=== PATIENT | male | born 1965 | race Caucasian/White ===

== ENCOUNTER 2019-12-17 11:57 | Emergency (ER) | payer SELFPAY ==
[2019-12-17 12:08] VITALS: BP 142/93
--- NOTE | 2019-12-17 12:36 | Emergency Department Report ---
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 he denies any pain. he denies any TRIMBLE or eye pain. he denies getting anything into the eye. he denies any LOC, no vomiting, no numbness, weakness, bowel or bladder incontinence. his last tetanus immunization was 2 years ago. PMHx DM which he reports is controlled on oral meds. no allergies to meds. - Related Data Previous Rx's Medication Instructions Recorded Last Taken Type Cephalexin [Keflex] 500 mg PO BID #14 capsule 03/07/13 Unknown Rx Hydrocodone Bit/Acetaminophen 1 each PO Q8HR PRN #15 tablet 03/07/13 Unknown Rx [Lortab 5-500 Tablet] Allergies Allergy/AdvReac Type Severity Reaction Status Date / Time No Known Allergies Allergy Verified 03/07/13 22:42 ED Review of Systems ROS: Stated complaint: LACERATION ABOVE LT EYE Other details as noted in HPI Comment: All other systems reviewed and negative ED Past Medical Hx - Past Medical History Hx Diabetes: Yes - Surgical History Additional Surgical History: left arm surgery - Social History Smoking Status: Never Smoker - Medications Home Medications: Home Medications Medication Instructions Recorded Confirmed Last Taken Type Cephalexin [Keflex] 500 mg PO BID #14 capsule 03/07/13 Unknown Rx Hydrocodone Bit/Acetaminophen 1 each PO Q8HR PRN #15 tablet 03/07/13 Unknown Rx [Lortab 5-500 Tablet] ED Physical Exam - General Limitations: Language Barrier General appearance: alert, in no apparent distress - Head Head exam: Present: other (1.5 cm laceration present to just below the left eyebrow ) - Eye Eye exam: Present: PERRL, EOMI, other (no signs of entrapement, mild ecchymosis to the left upper eyelid). Absent: conjunctival injection, periorbital swelling, periorbital tenderness - Neurological Exam Neurological exam: Present: alert, oriented X3, CN II-XII intact, normal gait. Absent: motor sensory deficit - Psychiatric Psychiatric exam: Present: normal affect, normal mood - Skin Skin exam: Present: warm, dry ED Course Vital Signs 12/17/19 12:01 Temperature 98.3 F Pulse Rate 76 Respiratory 18 Rate Blood Pressure 142/93 O2 Sat by Pulse 98 Oximetry - Laceration /Wound Repair Left Face Wound Location: face (just inferior to the left eyebrow) Wound Length (cm): 1 (1.5 cm total) Wound's Depth, Shape: superficial Wound Explored: clean Irrigated w/ Saline (ccs): 100 Betadine Prep?: Yes Volume Anesthetic (ccs): 0 Wound Debrided: extensive Wound Repaired With: Steri-strips, Dermabond Sterile Dressing Applied?: Yes Progress: There is a 1.5 cm laceration present just below the left eyebrow, no foreign body, no muscle involvement, wound irrigated with saline and thoroughly scrubbed with Betadine, multiple layers of Dermabond placed with good skin approximation, Steri-Strips applied, patient tolerated well, no complications, bleeding controlled, sterile dressing applied ED Medical Decision Making - Medical Decision Making pt is a 54 yo male who presents to the ED with c/o a laceration above the left eye that 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 he denies any pain. he denies any TRIMBLE or eye pain. he denies getting anything into the eye. he denies any LOC, no vomiting, no numbness, weakness, bowel or bladder incontinence. his last tetanus immunization was 2 years ago. PMHx DM which he reports is controlled on oral meds. no allergies to meds. vss. on exam: 1.5 cm laceration present to just below the left eyebrow, no foreign body, no muscle involvement,no signs of entrapement, mild ecchymosis to the left upper eyelid, no periorbital tenderness palpation. Wound repaired per procedure note with Dermabond and Steri-Strips. advised pt Please keep area clean, dry, covered. Please do not get the area wet for 2 days. After 2 days may wash around the area with soap and water and pat dry. No hot tub, no pool, no soaking in water. Showering is fine. Follow-up with a primary care doctor for reexamination. Return to emergency room for new or worsening symptoms. js casey used for Tajik interpretation Critical care attestation.: If time is entered above; I have spent that time in minutes in the direct care of this critically ill patient, excluding procedure time. ED Disposition Clinical Impression: Laceration, eyelid, left Qualifiers: Encounter type: initial encounter Qualified Code(s): S01.112A - Laceration without foreign body of left eyelid and periocular area, initial encounter Disposition: DC- TO HOME OR SELFCARE Is pt being admited?: No Does the pt Need Aspirin: No Condition: Stable Instructions: Laceration (ED), Skin Adhesive Care (ED) Additional Instructions: Please keep area clean, dry, covered. Please do not get the area wet for 2 days. After 2 days may wash around the area with soap and water and pat dry. No hot tub, no pool, no soaking in water. Showering is fine. Follow-up with a primary care doctor for reexamination. Return to emergency room for new or worsening symptoms. Referrals: your, primary care doctor [Other] - 2-3 Days Time of Disposition: 12:54 Print Language: JAPANESE
== END 2019-12-17 13:10 | disposition home or self-care (01) ==
LOC: ED 11:57
DX: S01.112A Laceration without foreign body of left eyelid and periocular area, initial encounter (principal); E11.9 Type 2 diabetes mellitus without complications; Z98.890 Other specified postprocedural states; X58.XXXA Exposure to other specified factors, initial encounter; Y93.89 Activity, other specified; Y92.89 Other specified places as the place of occurrence of the external cause; Y99.8 Other external cause status
CPT/HCPCS: 99281

== ENCOUNTER 2021-01-14 11:15 | Emergency (ER) | payer OTHER ==
[2021-01-14 11:29] VITALS: BP 120/79
--- NOTE | 2021-01-14 12:44 | Emergency Department Report ---
- General Chief complaint: Extremity Injury, Lower Stated complaint: FOOT PAIN Time Seen by Provider: 01/14/21 11:35 Source: patient Mode of arrival: Ambulatory Limitations: Language Barrier - History of Present Illness Initial comments: The patient was evaluated in the emergency department for symptoms described in the history of present illness. He/she was evaluated in the context of the global COVID-19 pandemic, which necessitated consideration that the patient might be at risk for infection with the virus that causes COVID-19. Institutional protocols and algorithms that pertain to the evaluation of patients at risk for COVID-19 are in a state of rapid change based on information released by regulatory bodies including the CDC and federal and state organizations. These policies and algorithms were followed during the patient's care in the emergency department. Please note that these policies, procedures and recommendations changed on a rapid basis. 55-year-old male presents to the emergency room for 3-week history of ingrown toenail on his right second digit. Patient is put purple medication topical from [place]. Patient reports no past medical history has no allergies to medication denies any trauma. He denies any drainage or discharge. Denies any bleeding. No fever no chills. MD complaint: abscess/boil Onset/Timin -: week(s) Tetanus Up to Date: no Location: L hand, R foot Severity: moderate Quality: burning, aching Consistency: constant Improves with: none Worsens with: palpation Associated symptoms: denies other symptoms Treatments Prior to Arrival: OTC topical medication (From [place]) - Related Data Previous Rx's Medication Instructions Recorded Last Taken Type Cephalexin [Keflex] 500 mg PO BID #14 capsule 03/07/13 Unknown Rx Hydrocodone Bit/Acetaminophen 1 each PO Q8HR PRN #15 tablet 03/07/13 Unknown Rx [Lortab 5-500 Tablet] Calcium Acetate/Aluminum Sulf 1 each TP QDAY PRN #1 box 01/14/21 Unknown Rx [[place] Packet] cephALEXin [Keflex] 500 mg PO Q8HR 7 Days #21 cap 01/14/21 Unknown Rx Allergies Allergy/AdvReac Type Severity Reaction Status Date / Time No Known Allergies Allergy Verified 03/07/13 22:42 Abscess Boil HPI - HPI Chief Complaint: Extremity Injury, Lower Stated Complaint: FOOT PAIN Time Seen by Provider: 01/14/21 11:35 Home Medications: Previous Rx's Medication Instructions Recorded Last Taken Type Cephalexin [Keflex] 500 mg PO BID #14 capsule 03/07/13 Unknown Rx Hydrocodone Bit/Acetaminophen 1 each PO Q8HR PRN #15 tablet 03/07/13 Unknown Rx [Lortab 5-500 Tablet] Calcium Acetate/Aluminum Sulf 1 each TP QDAY PRN #1 box 01/14/21 Unknown Rx [[place] Packet] cephALEXin [Keflex] 500 mg PO Q8HR 7 Days #21 cap 01/14/21 Unknown Rx Allergies/Adverse Reactions: Allergies Allergy/AdvReac Type Severity Reaction Status Date / Time No Known Allergies Allergy Verified 03/07/13 22:42 ED Review of Systems ROS: Stated complaint: FOOT PAIN Other details as noted in HPI Comment: All other systems reviewed and negative ED Past Medical Hx - Past Medical History Hx Diabetes: Yes - Surgical History Additional Surgical History: left arm surgery - Social History Smoking Status: Never Smoker - Medications Home Medications: Home Medications Medication Instructions Recorded Confirmed Last Taken Type Cephalexin [Keflex] 500 mg PO BID #14 capsule 03/07/13 Unknown Rx Hydrocodone Bit/Acetaminophen 1 each PO Q8HR PRN #15 tablet 03/07/13 Unknown Rx [Lortab 5-500 Tablet] Calcium Acetate/Aluminum Sulf 1 each TP QDAY PRN #1 box 01/14/21 Unknown Rx [[place] Packet] cephALEXin [Keflex] 500 mg PO Q8HR 7 Days #21 cap 01/14/21 Unknown Rx ED Physical Exam - General Limitations: Language Barrier General appearance: alert, in no apparent distress - Head Head exam: Present: atraumatic, normocephalic - Eye Eye exam: Present: normal appearance - ENT ENT exam: Present: normal external ear exam - Neck Neck exam: Present: full ROM - Respiratory Respiratory exam: Absent: accessory muscle use - Cardiovascular Cardiovascular Exam: Present: regular rate - Neurological Exam Neurological exam: Present: alert, oriented X3, normal gait - Psychiatric Psychiatric exam: Present: normal affect, normal mood - Skin Skin exam: Present: other (Right second digit cuticle's red tender no discharge appreciated nail seems to be in slightly embedded. Capillary refills is less than 2 seconds) ED Course Vital Signs 01/14/21 11:27 Temperature 98.5 F Pulse Rate 67 Respiratory 19 Rate Blood Pressure 120/79 O2 Sat by Pulse 98 Oximetry ED Medical Decision Making - Medical Decision Making 55-year-old male presents to the emergency room for 3-week history of ingrown toenail on his right second digit. Patient is put purple medication topical from [place]. Patient reports no past medical history has no allergies to medication denies any trauma. He denies any drainage or discharge. Denies any bleeding. No fever no chills. Patient be placed on Keflex, domoboro foot soaks can take ibuprofen or Tylenol for pain and to follow-up with the compounding assistant. Critical care attestation.: If time is entered above; I have spent that time in minutes in the direct care of this critically ill patient, excluding procedure time. ED Disposition Clinical Impression: Ingrown toenail with infection Disposition: HOME / SELF CARE / HOMELESS Is pt being admited?: No Does the pt Need Aspirin: No Condition: Stable Instructions: Ingrown Toenail Additional Instructions: Complete antibiotics as prescribed. You can take Tylenol or ibuprofen for pain. And soak your feet with the foot soak. Antibiticos completos segn lo prescrito. Puede mary Tylenol o ibuprofeno para el dolor. Y remoja tus pies con el remojo de pies. Prescriptions: Calcium Acetate/Aluminum Sulf [[place] Packet] 1 each TP QDAY PRN #1 box PRN Reason: Skin Cleaning cephALEXin [Keflex] 500 mg PO Q8HR 7 Days #21 cap Referrals: PRIMARY CARE, [Primary Care Provider] - 3-5 Days BRIANA DAMON DPM [Staff Physician] - 3-5 Days [facility] [Provider Group] - 3-5 Days Forms: Work/School Release Form(ED) Time of Disposition: 12:52 Print Language: LITHUANIAN
== END 2021-01-14 13:28 | disposition home or self-care (01) ==
LOC: ED 11:15
DX: L60.0 Ingrowing nail (principal); E11.8 Type 2 diabetes mellitus with unspecified complications; Z98.890 Other specified postprocedural states
CPT/HCPCS: 99282